=== PATIENT | male | born 1985 | race Two or more races ===

== ENCOUNTER 2021-03-23 16:16 | Emergency (ER) | payer OTHER ==
[~2021-03-23] VITALS: Ht 167.6 cm; Wt 81.6 kg
[2021-03-23 18:03] VITALS: BP 133/99
[2021-03-23] MEDS ORDERED: IBUPROFEN 800 MG TAB PO ONE (19:00)
== END 2021-03-23 19:06 | disposition home or self-care (01) ==
LOC: ER 16:16
DX: R07.81 Pleurodynia (principal); Y00.XXXA Assault by blunt object, initial encounter; Y93.89 Activity, other specified; Y92.89 Other specified places as the place of occurrence of the external cause; Y99.8 Other external cause status
CPT/HCPCS: 71101

== ENCOUNTER 2022-04-07 13:26 | Emergency (ER) | payer MEDICAID, OTHER ==
[~2022-04-07] VITALS: Ht 167.6 cm; Wt 77.1 kg
[2022-04-07 13:40] VITALS: BP 123/81
== END 2022-04-07 16:01 | disposition left against medical advice (07) ==
LOC: ER 13:26
DX: F41.9 Anxiety disorder, unspecified (principal); Z53.21 Procedure and treatment not carried out due to patient leaving prior to being seen by health care provider
CPT/HCPCS: 93005